=== PATIENT | female | born 1975 | race Caucasian/White ===

== ENCOUNTER → 2024-01-14 09:05 | Outpatient (REF) | payer OTHER, SELFPAY | LOC: WDC 09:05 | PROVIDERS: ATTENDING PHYSICIAN Nurse Practitioner Adult Health | DX: N63.20 Unspecified lump in the left breast, unspecified quadrant (principal); N63.24 Unspecified lump in the left breast, lower inner quadrant | CPT/HCPCS: 76642; 77061; 77065 ==

== ENCOUNTER 2024-08-28 22:39 | Emergency (ER) | payer OTHER, SELFPAY ==
[2024-08-28 22:41] VITALS: BMI 28.5
[2024-08-28 22:56] VITALS: BP 126/83
--- NOTE | 2024-08-28 23:43 | ED.GENMED ---
History of Present Illness
General
Chief Complaint: Fall
Source: patient and spouse
Exam Limitations: none
Time Seen by Provider: 08/28/24 23:36
Nursing documentation reviewed up to this point in time: agreed with
History of Present Illness
History of Present Illness:
49 yo female with no clinically significant past medical history was out with her friends and about an hour ago, drinking, walking up an incline, stumbled and fell onto her left side causing laceration of left side scalp. Denies LOC, friends called
EMS. Pt denies h/a, neck pain back pain or any other injury.
Past History
Past History
ED Past Medical History: Psychiatric (Anxiety/depression)
ED Past Surgical History: Gynecological (Breast augmentation)
Social History
Tobacco: Non-smoker
Alcohol: Occasional
Personal: Partner (Boyfriend)
Living: with family (With boyfriend)
Employment: Employed
Review of Systems
Review of Systems
Allergies reviewed?: Yes
All Other Systems: ROS reviewed and negative except as documented in HPI and ROS
Cardiac: Denies chest pain or syncope
ABD/GI: Denies abdominal pain, nausea or vomiting
: Denies dysuria, frequency, incontinence or difficulty voiding
Musculoskeletal: Denies neck pain or back pain
Skin: Reports other (Cut on head)
Neurological: Denies dizzy, headache, weakness or numbness
Phy Exam
Physical Exam
Physical Exam:
GENERAL: No acute distress. A&Ox3.
CONSTITUTIONAL: Afebrile.
EYES: clear, conjunctivae mildly injected from crying, PERRL
ENMT: moist mucus membranes, Pharynx nl
RESPIRATORY: Regular respirations, nonlabored, lungs clear.
CARDIOVASCULAR: Regular rate and rhythm, no murmurs, no rubs.
GI: Soft, nontender, normal BS
MUSCULOSKELETAL: No spinal bony tenderness. Hard collar removed. Moves with ease. Well perfused.
SKIN: Warm, dry, pink
PSYCH: Normal mood and affect. Well kept, interactive and appropriate
NEUROLOGIC: Awake, alert and oriented. Speech clear. Bodjyk-la-xoyj intact. Cranial nerves II through XII intact. No focal neurological deficits
Course
Orders/Labs/Results
Orders:
Orders
08/28/24 23:00
Tetanus/Diphth/Acelpertussis [Adacel] 0.5 ml IM .ONCE ONE
08/28/24 23:43
Ondansetron Orally Disint [Zofran Odt (Orally Disintegrating)] 4 mg .ROUTE .STK-MED ONE
08/28/24 23:49
Ondansetron HCl [Zofran] 4 mg PO NOW STA
08/28/24 23:58
Ondansetron Orally Disint [Zofran Odt (Orally Disintegrating)] 4 mg PO NOW STA
08/29/24 00:42
Lidocaine/Epinephrine/Tetracai [Let Topical Anesthetic Gel] 3 ml .ROUTE .STK-MED ONE
Lidocaine/Epinephrine/Tetracai [Let Topical Anesthetic Gel] 3 ml TOPICAL NOW STA
08/29/24 00:46
CT Head W/o Iv Contrast Urgent
Comment:
Reason For Exam: head injury, intoxicated, no LOC
Vital Signs
Initial and Last Documented VS:
Initial Vital Signs
Temp Pulse Resp Pulse Ox
98.5 F 110 20 99
08/28/24 22:41 08/28/24 22:41 08/28/24 22:41 08/28/24 22:41
Last Documented Vital Signs
Temp Pulse Resp BP Pulse Ox
98.5 F 72 20 121/61 99
08/28/24 22:41 08/29/24 01:41 08/28/24 22:41 08/29/24 01:41 08/29/24 01:41
MDM/Problems Addressed
Differential Diagnosis Includes:
intoxication
Minor head injury, concussion brain bleed
MDM/Problems Addressed:
49 yo female with no clinically significant past medical history was out with her friends and about an hour ago, drinking, walking up an incline, stumbled and fell onto her left side causing laceration of left side scalp. Denies LOC, friends called
EMS. Pt denies h/a, neck pain back pain or any other injury.
Her speech is slightly slurred, she appears intoxicated but she is oriented and appropriate
She ambulated to the bathroom and back with minimal assistance.
1:30 a.m. 08/29/[address] initially read by this examiner: nothing acute
Pt remains appropriate, much more alert and speech clear. No neuro deficits
Head lac glued
Stable for discharge
Pt discharged via wheelchair to care of her boyfriend with whom she lives.
*Critical Care Note
Total Time (30-74mins, 75-104mins- exclusive of procedures): Not Applicable
ED Attending Note
-
Portions of this chart may have been created with voice recognition software.� Occasional wrong word or��sound alike� substitutions may have occurred due to the inherent limitations of voice recognition software.
Discharge Plan
Departure
Patient Disposition: Home (Routine Discharge)
Date of Disposition: 08/29/24
Time of Disposition: 01:37
Patient with high blood pressure during this ER visit?: No
Condition: Good
Discharge Problem:
Alcohol intoxication, Laceration of scalp, Fall from slip, trip, or stumble
Instructions: Laceration Repair With Glue (DC), Head Injury in Adults (DC)
Referrals:
Lambert Terrell MD [Family Provider] - As needed
Activity Restrictions/Additional Instructions:
As we discussed, the glue is waterproof so you may wash your hair, just don't rub the glued area. The glue will slough off within 1-2 weeks.
Return here immediately for vomiting more than once, confusion, headache that gets worse and worse despite Tylenol.
Drink plenty of water.
Interventions
Interventions:
*Risk Screen - Suicide Last Done: 08/28/24 22:41
*General Assessment Last Done: 08/28/24 22:41
*Neglect/Abuse Screening Last Done: 08/28/24 22:41
*ED- Fall Risk Assessment Last Done: 08/28/24 22:41
*ED COVID-19 Vaccine History Last Done: 08/29/24 00:40
*Nursing Disposition Last Done: 08/29/24 01:50
ED- Neurological Assessment Last Done: 08/28/24 22:59
ED-Skin Assessment Last Done: 08/28/24 22:59
Discharge Date and Time
Discharge Date/Time: 08/29/24 01:52
Print Language: FRENCH
[2024-08-28] MEDS: ZOFRAN ODT (ORALLY DISINTEGRATING) 4 MG PO (23:58)
[2024-08-28] MEDS: ADACEL 0.5 ML IM (23:59)
[2024-08-29] MEDS: LET TOPICAL ANESTHETIC GEL 3 ML TOPICAL (00:43)
[2024-08-29 01:41] VITALS: BP 121/61
== END 2024-08-29 01:52 | disposition home or self-care (01) ==
LOC: EMR 22:39
PROVIDERS: EMERGENCY PHYSICIAN Emergency Medicine; FAMILY PHYSICIAN Internal Medicine
DX: F10.129 Alcohol abuse with intoxication, unspecified (principal); S01.01XA Laceration without foreign body of scalp, initial encounter; W01.0XXA Fall on same level from slipping, tripping and stumbling without subsequent striking against object, initial encounter; Y90.9 Presence of alcohol in blood, level not specified; Z23 Encounter for immunization
CPT/HCPCS: 99284; 90471; 96372; 70450; 90715